=== PATIENT | male | born 1995 | race Caucasian/White ===

== ENCOUNTER 2016-11-15 17:00 | Emergency (ER) | payer OTHER ==
[~2016-11-15] VITALS: Ht 177.8 cm; Wt 90.7 kg
[2016-11-15 17:06] VITALS: BP 149/88
--- NOTE | 2016-11-15 18:00 | ULTRASOUND REPORT ---
EXAMINATION: US SCROTUM CLINICAL INFORMATION: Testicular pain. COMPARISON: None. TECHNIQUE: A sonogram of the scrotum was performed assessing jenkins-scale appearance and color Doppler flow. FINDINGS: RIGHT: Right testicle measures 4.5 x 2.3 x 3.0 cm, volume 22.1 mL. Parenchymal echotexture is normal. No focal testicular parenchymal lesions are visualized. Normal symmetric intratesticular flow is visualized. Right epididymal head is normal in size. No right hydrocele or varicocele is seen. LEFT: Left testicle measures 5.3 x 2.6 x 3.0 cm, volume 29.4 mL. Parenchymal echotexture is normal. No focal testicular parenchymal lesions are visualized. Normal symmetric intratesticular flow is visualized. Left epididymal head is normal in size. No left hydrocele or varicocele is seen. IMPRESSION: Unremarkable testicular ultrasound. The testicles are symmetric in size. No focal intratesticular or extratesticular lesions are identified. Arterial and venous flow are demonstrated within both testicles.
--- NOTE | 2016-11-15 19:23 | ED GI/GU/ABDOMINAL COMPLAINT ---
History of Present Illness General Chief Complaint: Male Genitourinary Problems Stated Complaint: TESTICLE PAIN Source: patient Exam Limitations: no limitations Vital Signs & Intake/Output Vital Signs & Intake/Output Vital Signs Date Time Temp Pulse Resp B/P B/P Pulse O2 O2 Flow FiO2 Mean Ox Delivery Rate 11/15 1706 97.7 76 18 149/88 99 Room Air Allergies Coded Allergies: No Known Allergies (11/15/16) Reconcile Medications Oxycodone HCl/Acetaminophen (Percocet 5-325 MG Tablet) 5 MG-325 MG TABLET 1-2 TAB PO Q6P PRN PAIN Triage Note: PT HERE FOR TESTICLE PAIN ON AND OFF FOR THE PAST 2 WEEKS. PT STATES HE CHECKED HIMSELF FOR LUMPS AND DID NOT FEEL ANY. PT DENIES ANY CHANGE IN TESTICLE SIZE. PT ALSO C/O MINOR LOVE OVER THE PAST FEW DAYS. PT DENIES ANY DIFFICULTY URINATING. Triage Nurses Notes Reviewed? yes HPI: Past few days patient has been having intermittent pain to his left testicle. The pain will come on gradually and then intensified over 5 minutes and then resolved completely. There is no radiation when he gets the pain. No aggravating or mitigating factors. The pain is squeezing and aching in nature. At its worst the pain is 6 out of 10 and when it goes away it is a 0 out of 10. There is no dysuria or penile discharge. There is no back pain. There is no abdominal pain. There is no nausea or vomiting. The patient is currently pain- free. Past History Travel History Traveled to [place] past 21 day No Medical History Any Pertinent Medical History? none Surgical History Surgical History: non-contributory Psychosocial History What is your primary language Maltese Tobacco Use: Quit >30 days ago ETOH Use: occasional use Illicit Drug Use: denies illicit drug use Family History Hx Contributory? No Review of Systems Review of Systems Constitutional: Reports: no symptoms. EENTM: Reports: no symptoms. Respiratory: Reports: no symptoms. Cardiovascular: Reports: no symptoms. GI: Reports: no symptoms. Genitourinary: Reports: see HPI. Musculoskeletal: Reports: no symptoms. Immunologic/Allergic: Reports: no symptoms. Physical Exam Physical Exam General Appearance: well developed/nourished, alert, awake Head: atraumatic, normal appearance Eyes: Bilateral: PERRL, EOMI. Neck: normal inspection, supple Respiratory: normal breath sounds, chest non-tender, no respiratory distress, lungs clear Cardiovascular: regular rate/rhythm, normal peripheral pulses Gastrointestinal: normal bowel sounds, soft, non-tender, no organomegaly Male Genitals: normal genitalia, normal cremaster reflex Back: normal inspection, normal range of motion, no cva tenderness Extremities: normal range of motion Neurologic/Psych: no motor/sensory deficits, awake, alert, oriented x 3, normal gait, normal mood/affect Skin: intact, normal color, warm/dry Core Measures ACS in differential dx? No Severe Sepsis Present: No Septic Shock Present: No Progress Differential Diagnosis: epididymitis, orchitis, testicular torsion, ureterolithiasis, UTI/pyelo Plan of Care: Orders Procedure Date/time Status URINALYSIS 11/15 1706 Complete Laboratory Tests 11/15/16 1930: Urine Color STRAW, Urine Clarity CLEAR, Urine pH 6.0, Ur Specific [place] <= 1.005, Urine Protein NEG, Urine Ketones NEG, Urine Nitrite NEG, Urine Bilirubin NEG, Urine Urobilinogen 0.2, Ur Leukocyte Esterase NEG, Ur Microscopic EXAM NOT REQUIRED, Urine Hemoglobin NEG, Urine Glucose NEG Diagnostic Imaging: Viewed by Me: Ultrasound. Discussed w/RAD: Ultrasound. Radiology Impression: PATIENT: JESSICA KELLEY JR PRESENT AGE: 21 PATIENT ACCOUNT NO: [id number] : 94 LOCATION: [facility] ORDERING PHYSICIAN: [address] SERVICE DATE: 11/15/16-1706 EXAM TYPE: US - US- TESTICULAR EXAMINATION: US SCROTUM CLINICAL INFORMATION: Testicular pain. COMPARISON: None. TECHNIQUE: A sonogram of the scrotum was performed assessing jenkins-scale appearance and color Doppler flow. FINDINGS: RIGHT: Right testicle measures 4.5 x 2.3 x 3.0 cm, volume 22.1 mL. Parenchymal echotexture is normal. No focal testicular parenchymal lesions are visualized. Normal symmetric intratesticular flow is visualized. Right epididymal head is normal in size. No right hydrocele or varicocele is seen. LEFT: Left testicle measures 5.3 x 2.6 x 3.0 cm, volume 29.4 mL. Parenchymal echotexture is normal. No focal testicular parenchymal lesions are visualized. Normal symmetric intratesticular flow is visualized. Left epididymal head is normal in size. No left hydrocele or varicocele is seen. IMPRESSION: Unremarkable testicular ultrasound. The testicles are symmetric in size. No focal intratesticular or extratesticular lesions are identified. Arterial and venous flow are demonstrated within both testicles. DICTATED BY: JONNY ALLRED MD DATE/TIME DICTATED:11/15/161750 [employer] OPERATOR:BETTY DATE/TIME TRANSCRIBED:11/15/161750 CONFIDENTIAL, DO NOT COPY WITHOUT APPROPRIATE AUTHORIZATION. <Electronically signed in Other Vendor System> SIGNED BY: JONNY ALLRED MD 11/15/16 1800 Initial ED EKG: none Departure Departure Disposition: HOME OR SELF CARE Condition: Stable Clinical Impression Primary Impression: Testicular pain, left Referrals: KASH HERNADEZ MD PATIENT HAS NO PRIMARY CARE DR (PCP/Family) Additional Instructions: RETURN IF SYMPTOMS WORSEN OR FOR ANY CONCERNS Departure Forms: Customer Survey General Discharge Information Prescriptions: Current Visit Scripts Oxycodone HCl/Acetaminophen (Percocet 5-325 MG Tablet) 1-2 TAB PO Q6P PRN PAIN #10 TAB
[2016-11-15] MEDS ORDERED: PERCOCET 5-3251 EACH PO (19:47)
== END 2016-11-15 20:00 ==
LOC: ERH 17:00
DX: N50.812 Left testicular pain (principal)
CPT/HCPCS: 81003